=== PATIENT | female | born 1995 | race Caucasian/White ===

== ENCOUNTER 2021-05-06 15:26 | Inpatient (IN) | payer OTHER ==
[~2021-05-06] VITALS: Ht 162.6 cm; Wt 77.1 kg
[~2021-05-06 15:26] MED LIST: PRENATAL VITAM1 EAC8 PO; ZOFRAN ODT 4 MG4 MG PO
[2021-05-08 06:23] LABS: HEMOGLOBIN 12.6 gm/dl (12.3-15.3); RED BLOOD COUNT 4.29 M/UL (4.00-5.10); WHITE BLOOD COUNT 10.3 K/UL (4.5-11.0)
[2021-05-08] MEDS ORDERED: COLACE 100MG C100 MG PO (14:21)
[2021-05-08] MEDS ORDERED: HYDROCODON-ACE1 EAC4 PO (14:21)
[2021-05-08] MEDS ORDERED: IBUPROFEN800 MG PO (14:21)
[2021-05-09 05:54] LABS: HEMOGLOBIN 10.6 gm/dl (12.3-15.3)
== END 2021-05-09 18:45 | disposition home or self-care (01) | DRG 807 ==
LOC: LBRF 15:26 → OB 05-08 05:32
PROVIDERS: Obstetrics & Gynecology; ADMIT Obstetrics & Gynecology
PROC: 10E0XZZ Delivery of Products of Conception, External Approach (ICD-10-PCS; principal; 2021-05-08)
PROC: 0KQM0ZZ Repair Perineum Muscle, Open Approach (ICD-10-PCS; 2021-05-08)
PROC: 10907ZC Drainage of Amniotic Fluid, Therapeutic from Products of Conception, Via Natural or Artificial Opening (ICD-10-PCS; 2021-05-08)
PROC: 4A1HXCZ Monitoring of Products of Conception, Cardiac Rate, External Approach (ICD-10-PCS; 2021-05-08)
DX: O70.1 Second degree perineal laceration during delivery (principal); Z37.0 Single live birth; Z3A.39 39 weeks gestation of pregnancy; Z20.822 Contact with and (suspected) exposure to COVID-19
CPT/HCPCS: 36415; 81001; 82800; 85014; 85018; 85025; 90471; J2590; J7120; U0003